=== PATIENT | female | born 1990 | race Caucasian/White ===

== ENCOUNTER 2019-02-20 10:25 | Day surgery (SDC) | payer OTHER ==
[2019-02-18 16:06] LABS: Hematocrit 40.5 % (33.0-51.0); Hemoglobin 13.4 g/dL (11.5-16.0); Mean Corpuscular HGB 31.5 pg (26.0-34.0); Mean Corpuscular HGB Conc 33.1 g/dL (31.5-36.5); Mean Corpuscular Volume 95 fL (80-100); Platelet Count 261 K/mm3 (150-400); RDW Coefficient Variation 12.2 % (11.7-14.2); RDW Standard Deviation 42.4 fL (35.1-46.3); Red Blood Cell Count 4.26 M/mm3 (3.80-5.20); White Blood Cell Count 4.97 K/mm3 (4.00-11.30)
[~2019-02-20] VITALS: Ht 154.9 cm; Wt 75.0 kg
[~2019-02-20 10:25] MED LIST: CEPH500 PO; CRUTCH3 USE; Flagyl500 MG PO; MULVITMINE PO; NAPR500 PO; Vibramycin100 MG PO
--- NOTE | 2019-02-20 11:02 | NUR ---
PT ADMITTED TO [facility]. AGREES WITH PLANNED SURGERY. LUNG SOUNDS CLEAR.
--- NOTE | 2019-02-20 11:05 | NUR ---
PT STATES SHE WAS IN GIVEN CHLOROHAXADINE SOAP FOR SHOWERS X2 PRE-OP.
--- NOTE | 2019-02-20 13:50 | NUR ---
SITTING UP IN BED. TOLERATING PO WATER. DENIES NAUSEA. C/O / CRAMPING PELVIS BILAT.
--- NOTE | 2019-02-20 13:57 | NUR ---
TOLERATING SALTINE CRACKRS.
--- NOTE | 2019-02-20 14:05 | NUR ---
Discharge instructions reviewed with patient. Patient verbalizes understanding. Copy given to patient to take home. Prescription given to patient to fill.
--- NOTE | 2019-02-20 14:11 | NUR ---
UP TO DRESS AND TO VOID. GAIT STEADY. VOIDED WITHOUT DIFFICULTY. LETTY PAD LESS THAN 25% RED DRAINAGE NOTED. NEW PAD IN PLACE.
== END 2019-02-20 14:20 | disposition home or self-care (01) ==
LOC: ORSCMMR 10:25 → ORD 12:00 → ORSCMMR 14:20
PROVIDERS: Obstetrics & Gynecology
PROC: 10A07Z6 Abortion of Products of Conception, Vacuum, Via Natural or Artificial Opening (ICD-10-PCS; principal; 2019-02-20 12:00)
DX: O03.4 Incomplete spontaneous abortion without complication (principal)
CPT/HCPCS: 36415; 85027; 86850; 86900; 86901; 88305; J0690; J1100; J1885; J2210; J2250; J2405; J2704; J3010; J7120

== ENCOUNTER 2019-12-25 18:23 | Inpatient (IN) | payer OTHER ==
[~2019-12-25] VITALS: Ht 154.9 cm; Wt 86.3 kg
[2019-12-25 18:58] LABS: BASOPHILS ABSOLUTE AUTO 0.02 K/mm3 (0.00-0.23); BASOPHILS PERCENT AUTO 0 % (0-2); EOSINOPHILS ABSOLUTE AUTO 0.07 K/mm3 (0.00-0.68); EOSINOPHILS PERCENT AUTO 1 % (0-6); Hematocrit 43.4 % (33.0-51.0); Hemoglobin 14.8 g/dL (11.5-16.0); IMMATURE GRAN ABSOLUTE AUTO 0.06 K/mm3 (0.00-0.10); IMMATURE GRAN PERCENT AUTO 0 % (0-1); LYMPHOCYTES ABSOLUTE AUTO 1.91 K/mm3 (0.84-5.20); LYMPHOCYTES PERCENT AUTO 13 % (21-46); MONOCYTES ABSOLUTE AUTO 0.86 K/mm3 (0.16-1.47); MONOCYTES PERCENT AUTO 6 % (4-13); Mean Corpuscular HGB 30.9 pg (26.0-34.0); Mean Corpuscular HGB Conc 34.1 g/dL (31.5-36.5); Mean Corpuscular Volume 91 fL (80-100); Mean Platelet Volume 11.8 fL (9.1-12.4); NEUTROPHILS ABSOLUTE AUTO 11.47 K/mm3 (1.96-9.15); NEUTROPHILS PERCENT AUTO 80 % (41-73); Platelet Count 208 K/mm3 (150-400); RDW Coefficient Variation 13.1 % (11.7-14.2); RDW Standard Deviation 43.4 fL (35.1-46.3); Red Blood Cell Count 4.79 M/mm3 (3.80-5.20); White Blood Cell Count 14.39 K/mm3 (4.00-11.30)
[2019-12-26 08:41] LABS: Hematocrit 36.9 % (33.0-51.0); Hemoglobin 12.4 g/dL (11.5-16.0); Mean Corpuscular HGB 31.1 pg (26.0-34.0); Mean Corpuscular HGB Conc 33.6 g/dL (31.5-36.5); Mean Corpuscular Volume 93 fL (80-100); Mean Platelet Volume 11.8 fL (9.1-12.4); Platelet Count 177 K/mm3 (150-400); RDW Coefficient Variation 13.2 % (11.7-14.2); RDW Standard Deviation 44.6 fL (35.1-46.3); Red Blood Cell Count 3.99 M/mm3 (3.80-5.20); White Blood Cell Count 15.36 K/mm3 (4.00-11.30)
--- NOTE | 2019-12-26 13:53 | NUR ---
PATIENT, FOB AND BABY ASLEEP
--- NOTE | 2019-12-26 22:16 | NUR ---
DISCHARGE INSTRUCTIONS REVIEWED WITH PATIENT. PT VERBALIZED UNDERSTANDING AND DENIES ANY FURTHER QUESTIONS AT THIS TIME. RN INSTRUCTED PT ON ROOMING-IN WITH NB AND PT VERBALIZED UNDERSTANDING.
== END 2019-12-26 22:00 | disposition home or self-care (01) | DRG 807 ==
LOC: OBS 18:23 → BC 18:23 → OBS 18:34 → BC 18:35
PROVIDERS: ADMIT Advanced Practice Midwife
PROC: 10E0XZZ Delivery of Products of Conception, External Approach (ICD-10-PCS; principal; 2019-12-25)
PROC: 0HQ9XZZ Repair Perineum Skin, External Approach (ICD-10-PCS; 2019-12-25)
DX: O99.824 Streptococcus B carrier state complicating childbirth (principal); Z37.0 Single live birth; O70.0 First degree perineal laceration during delivery; Z3A.40 40 weeks gestation of pregnancy
CPT/HCPCS: 36415; 85025; 85027; 86850; 86900; 86901; J0290; J1885; J2001; J2590; J3010; J7120

== ENCOUNTER 2020-03-29 09:46 | Day surgery (SDC) | payer OTHER ==
[~2020-03-29] VITALS: Ht 154.9 cm; Wt 75.3 kg
--- NOTE | 2020-03-29 12:01 | NUR ---
03/29/20 1201 Vickey Clay LETTY AREA PREPPED BY [facility]THERON ADBOMINAL AREA PREPPED BY [facility].
== END 2020-03-29 13:39 | disposition home or self-care (01) ==
LOC: ORSCSDS 09:46
PROVIDERS: Obstetrics & Gynecology
PROC: 0UT74ZZ Resection of Bilateral Fallopian Tubes, Percutaneous Endoscopic Approach (ICD-10-PCS; principal; 2020-03-29 11:00)
DX: Z30.2 Encounter for sterilization (principal); Q50.5 Embryonic cyst of broad ligament; Z87.891 Personal history of nicotine dependence
CPT/HCPCS: 88302; J0171; J0690; J1100; J1885; J2250; J2405; J2704; J3010; J7120

== ENCOUNTER → 2020-12-07 | Outpatient (CLI) | payer OTHER ==
[2020-12-09 09:08] LABS: HBSAG SCREEN Negative (Negative); HEP A AB, IGM Negative (Negative); HEP B CORE AB, IGM Negative (Negative); HEP C VIRUS AB <0.1 (0.0-0.9); HIV SCREEN 4TH GENERATION WRFX Non Reactive (Non Reactive)
== END | disposition home or self-care (01) ==
LOC: LAB SHORT 16:15
PROVIDERS: Family Medicine
DX: Z77.21 Contact with and (suspected) exposure to potentially hazardous body fluids (principal)
CPT/HCPCS: 80074; 87389

== ENCOUNTER → 2022-06-04 | Outpatient (CLI) | payer OTHER | END | disposition home or self-care (01) | LOC: LAB SHORT 11:45 → LAB 11:45 | DX: R30.0 Dysuria (principal); R35.0 Frequency of micturition | CPT/HCPCS: 87077; 87086; 87186 ==

== ENCOUNTER 2022-08-24 09:12 | Day surgery (SDC) | payer OTHER ==
[~2022-08-24] VITALS: Ht 154.9 cm; Wt 75.7 kg
[2022-08-24] MEDS ORDERED: SERT100 PO (09:46)
--- NOTE | 2022-08-24 10:29 | NUR ---
08/24/22 [id number] Ary Lauren A PILLOW UNDER HEAD, ARMS SECURED ON PADDED ARM BOARDS, LEFT HIP BUMP
--- NOTE | 2022-08-24 13:07 | NUR ---
08/24/22 1307 Helder Velasco NO PAIN PERSCRIPTION ON PATIENT'S CHART. PATIENT STATES PERSCRIPTION IS BEING FILLED AT [facility]. PATIENT REPORTS SHE HAS NO CRUTCHES OR OTHER AMBULATORY AIDS AT HOME. SHE WAS ADVISED TO GET CRUTCHES YELENA.
== END 2022-08-24 12:55 | disposition home or self-care (01) ==
LOC: ORSCSDS 09:12
PROVIDERS: Podiatrist Foot & Ankle Surgery
PROC: 0QSP04Z Reposition Left Metatarsal with Internal Fixation Device, Open Approach (ICD-10-PCS; principal; 2022-08-24 10:30)
DX: M21.612 Bunion of left foot (principal); M79.672 Pain in left foot; I10 Essential (primary) hypertension
CPT/HCPCS: A9270; C1776; J0690; J2001; J2250; J2704; J2795; J3010; J7120

== ENCOUNTER → 2022-09-30 | Outpatient (CLI) | payer OTHER ==
[~2022-09-30] MED LIST changes: +SERT100 PO
[2022-09-30 09:47] LABS: Bun/Creatinine Ratio 11.6 (12.0-20.0); Calcium, Blood 9.3 mg/dL (8.5-10.1); Creatinine, Blood 0.69 mg/dL (0.40-1.00); Potassium, Blood 3.7 mmol/L (3.5-5.5)
[2022-10-01 08:09] LABS: HIV AB/P24 AG SCREEN Non Reactive (Non Reactive)
[2022-10-02 01:08] LABS: CHLAMYDIA TRACHOMATIS, NAA Negative (Negative)
== END ==
LOC: LAB 09:38 → LAB SHORT 09:38
PROVIDERS: Physician Assistant
DX: R11.2 Nausea with vomiting, unspecified (principal); Z20.9 Contact with and (suspected) exposure to unspecified communicable disease
CPT/HCPCS: 80048; 87389; 87491; 87591

== ENCOUNTER → 2023-05-06 | Outpatient (CLI) | payer OTHER ==
[2023-05-07 12:21] LABS: Candida species (DNA Probe) Negative (NEGATIVE); G. vaginalis (DNA Probe) Negative (NEGATIVE); T. vaginalis (DNA Probe) Negative (NEGATIVE)
[2023-05-08 04:09] LABS: CHLAMYDIA TRACHOMATIS, NAA Negative (Negative)
== END | disposition home or self-care (01) ==
LOC: LAB SHORT 07:55 → LAB 07:55
PROVIDERS: Family Medicine
DX: Z11.3 Encounter for screening for infections with a predominantly sexual mode of transmission (principal)
CPT/HCPCS: 87480; 87491; 87510; 87591; 87660

== ENCOUNTER → 2023-09-20 | Outpatient (CLI) | payer OTHER | END | disposition home or self-care (01) | LOC: LAB SHORT 12:53 → LAB 12:53 | DX: R30.0 Dysuria (principal) | CPT/HCPCS: 87077; 87086; 87186 ==

== ENCOUNTER → 2024-07-27 | Outpatient (CLI) | payer OTHER | LOC: LAB SHORT 14:38 → LAB 14:38 | DX: R30.0 Dysuria (principal) | CPT/HCPCS: 87086 ==

== ENCOUNTER → 2024-10-17 | Outpatient (CLI) | payer OTHER ==
[2024-10-20 18:40] LABS: APTIMA MEDIA TYPE Urine; C. TRACHOMATIS BY TMA Negative (Negative); N. GONORRHOEAE BY TMA Negative (Negative); SPECIMEN SOURCE Urine
[2024-10-26 07:35] LABS: HPV HIGH RISK BY TMA Not Detected; HPV SOURCE Cervical
== END | disposition home or self-care (01) ==
LOC: LAB 11:35 → LAB SHORT 11:35
PROVIDERS: Family Medicine
DX: Z00.00 Encounter for general adult medical examination without abnormal findings (principal); Z11.3 Encounter for screening for infections with a predominantly sexual mode of transmission; Z12.4 Encounter for screening for malignant neoplasm of cervix
CPT/HCPCS: 87491; 87591; 87624; G0123